=== PATIENT | male | born 1985 | race Caucasian/White ===

== ENCOUNTER 2017-01-28 15:31 | Emergency (ER) | payer BC ==
[2017-01-28 15:36] VITALS: BP 149/74
[2017-01-28] MEDS ORDERED: Albuterol 2.5 MG/3 ML NEB.SOL* (0.083%) INH ONE (15:42)
--- NOTE | 2017-01-28 16:26 | UC ---
Respiratory Complaint HPI - HPI Summary HPI Summary: COUGH X 2 DAYS + WHEEZING , SOB NO FEVER, NO CHILLS, NO NASAL CONGESTION - History of Current Complaint Chief Complaint: UCRespiratory Stated Complaint: DIFFICULTY BREATHING SINCE YESTERDAY (WORSENING) Time Seen by Provider: 01/28/17 15:33 Hx Obtained From: Patient Onset/Duration: Gradual Onset, Lasting Days - 2, Still Present Timing: Constant Severity Initially: Moderate Severity Currently: Moderate Character: Cough: Nonproductive Aggravating Factors: Allergens, Exertion, Deep Breaths Alleviating Factors: Nothing Associated Signs And Symptoms: Positive: Dyspnea, Wheezing, URI, Nasal Congestion. Negative: Fever, Chills - Allergies/Home Medications Allergies/Adverse Reactions: Allergies Allergy/AdvReac Type Severity Reaction Status Date / Time Acetaminophen [From Tylenol] Allergy Nausea And Verified 01/28/17 15:36 Vomiting Benzocaine Allergy Unknown Verified 01/28/17 15:36 Reaction Details Procaine [From Novocain] Allergy Unknown Verified 01/28/17 15:36 Reaction Details PMH/Surg Hx/FS Hx/Imm Hx Previously Healthy: Yes - Surgical History Surgical History: None - Family History Known Family History: Negative: Diabetes - Social History Alcohol Use: Rare Substance Use Type: None Smoking Status (MU): Light Every Day Tobacco Smoker Type: Cigarettes Amount Used/How Often: 1/2 ppd - Immunization History Most Recent Influenza Vaccination: no Review of Systems Constitutional: Negative Skin: Negative Eyes: Negative ENT: Nasal Discharge Respiratory: Shortness Of Breath, Cough Cardiovascular: Negative Is Patient Immunocompromised?: No All Other Systems Reviewed And Are Negative: Yes Physical Exam Triage Information Reviewed: Yes Appearance: Well-Appearing, No Pain Distress, Well-Nourished Vital Signs: Initial Vital Signs Temp 99.3 F 01/28/17 15:32 Pulse 99 01/28/17 15:32 Resp 22 01/28/17 15:32 BP 149/74 01/28/17 15:32 Pulse Ox 98 01/28/17 15:32 Vital Signs Reviewed: Yes Eyes: Positive: Conjunctiva Clear ENT: Positive: Normal ENT inspection, Hearing grossly normal, Pharynx normal Neck: Positive: Supple Respiratory: Positive: Respiratory distress, Wheezing Cardiovascular: Positive: RRR, No Murmur, Pulses Normal Skin Exam: Normal UC Diagnostic Evaluation - Laboratory O2 Sat by Pulse Oximetry: 98 Respiratory Course/Dx - Differential Dx/Diagnosis Provider Diagnoses: BRONCHITIS Discharge - Discharge Plan Condition: Stable Disposition: HOME Prescriptions: Albuterol HFA INHALER* [Ventolin HFA Inhaler*] 2 puff INH Q6H PRN #1 mdi PRN Reason: Wheezing predniSONE TAB* [Deltasone TAB*] 40 mg PO DAILY #10 tab Patient Education Materials: Acute Bronchitis (ED) Forms: *Work Release Referrals: No Primary Care Phys,NOPCP [Primary Care Provider] - 5 Days
== END 2017-01-28 15:40 | disposition home or self-care (01) ==
LOC: UCCORT 15:31
DX: J40 Bronchitis, not specified as acute or chronic (principal); Z88.6 Allergy status to analgesic agent; Z88.4 Allergy status to anesthetic agent; F17.210 Nicotine dependence, cigarettes, uncomplicated
CPT/HCPCS: 99202; G0463